=== PATIENT | male | born 1970 | race Native Hawaiian/Other Pacific Islander ===

== ENCOUNTER → 2016-04-26 | Outpatient (CLI) | payer OTHER ==
[2016-04-26 13:03] LABS: EKG EKG PERFORMED
--- NOTE | 2016-04-26 13:08 | XR ---
EXAMINATION TYPE: XR chest 2V DATE OF EXAM: 04/26/2016 12:48 PM COMPARISON: 11/25/2013 HISTORY: 45-year-old male preadmission screening TECHNIQUE: Frontal and lateral views FINDINGS: The cardiomediastinal silhouette, aorta, and pulmonary vasculature are within normal limits. Low lung volumes with some strandy atelectasis in the lower lungs. Otherwise, lungs and pleural spaces are cl ear. ACDF hardware partially seen. IMPRESSION: Some hypoventilatory changes without acute cardiopulmonary process.
[2016-04-26 13:23] LABS: Appearance,Urine Clear (Clear); Basophils # (A) 0.1 k/uL (0-0.2); Basophils % (A) 1 %; Bilirubin,Urine Negative (Negative); CH 30.8; CHCM 34.9; Eosinophils # (A) 0.1 k/uL (0-0.7); Eosinophils % (A) 2 %; Glucose,Urine (UA) Negative (Negative); HDW 2.93; HGB 15.6 gm/dL (13.0-17.5); Ketones,Urine Negative (Negative); Leukocyte Esterase,Urine Negative (Negative); Luc # (Auto) 0.12; Luc % (Auto) 2; Lymphocytes # (A) 2.5 k/uL (1.0-4.8); Lymphocytes % (A) 31 %; MCH 28.8 pg (25.0-35.0); MCHC 32.5 g/dL (31.0-37.0); MCV 88.8 fL (80.0-100.0); Mean Platelet Volume 7.1; Monocytes # (A) 0.4 k/uL (0-1.0); Monocytes % (A) 5 %; Neutrophils # (A) 4.7 k/uL (1.3-7.7); Neutrophils % (A) 59 %; Nitrite,Urine Negative (Negative); PH, Urine 6.5 (5.0-8.0); Protein,Urine Negative (Negative); RBC 5.41 m/uL (4.30-5.90); RDW 12.7 % (11.5-15.5); Specific Gravity,Urine 1.016 (1.001-1.035); UA Billing (MACRO vs. MICRO) CHEM; Urobilinogen,Urine <2.0 mg/dL (<2.0); WBC 8.1 k/uL (3.8-10.6); WBC (Perox) 8.24
[2016-04-26 13:29] LABS: INR 1.1 (<1.1); Partial Thromboplastin Time 25.1 sec (22.0-30.0)
[2016-04-26 14:07] LABS: Anion Gap 12 mmol/L; Blood Urea Nitrogen 12 mg/dL (9-20); Calcium 9.4 mg/dL (8.4-10.2); Carbon Dioxide 26 mmol/L (22-30); Chloride 104 mmol/L (98-107); Glucose 83 mg/dL (74-99); Non-African American GFR(MDRD) >60 (>60 ml/min/1.73 sqM); Potassium 4.3 mmol/L (3.5-5.1); Sodium 142 mmol/L (137-145)
== END | disposition home or self-care (01) ==
LOC: LABPAT 11:32
PROVIDERS: ATTEND Orthopaedic Surgery Orthopaedic Surgery of the Spine
DX: Z01.810 Encounter for preprocedural cardiovascular examination (principal); Z01.812 Encounter for preprocedural laboratory examination
CPT/HCPCS: 71020; 80048; 81003; 85025; 85610; 85730; 87070; 93005

== ENCOUNTER 2016-05-02 11:23 | Inpatient (IN) | payer OTHER ==
[2016-04-26 10:30] VITALS: BMI 29.8
[~2016-05-02 11:23] MED LIST: BACITRACIN 50,000 UNIT, POLYMYXIN B 500,000 UNIT in SODIUM CHLORIDE 0.9% IRRIGATIO 1,00... IRRIGATION ONE; DEXAMETHASONE SOD PHOSPHATE 10 MG/ML 1 ML VIAL IV ONE; MIDAZOLAM 2 MG/2 ML VIAL IV PRN; ONDANSETRON 4 MG/2 ML VIAL IVP ONE; ceFAZolin 2 GM in SODIUM CHLORIDE 0.9% 100 ML IVPB ONE
[2016-05-02] MEDS: LACTATED RINGERS 1,000 ML IV SCH (11:52)
[2016-05-02] MEDS ORDERED: LIDOCAINE 1% 20 ML VIAL (10MG/ML) FOR IV START INTRADERMA ONE (11:52)
[2016-05-02] MEDS ORDERED: PROPOFOL 10 MG/ML 20 ML VIAL IV ONE (12:57)
[2016-05-02] MEDS ORDERED: HEPARIN SODIUM,PORCINE 10,000 UNIT/ML 1 ML VIAL ONE (12:57)
[2016-05-02] MEDS ORDERED: LIDOCAINE 1% INJ 10MG/ML (20 ML MDV) ONE (12:57)
[2016-05-02] MEDS ORDERED: MIDAZOLAM 2 MG/2 ML VIAL ONE (12:57)
[2016-05-02] MEDS ORDERED: PHENYLEPHRINE-0.9% NACL SYG 1 MG/10 ML SYRINGE ONE (12:57)
[2016-05-02] MEDS ORDERED: ePHEDrine 50 MG/ML 1 ML AMP ONE (12:57)
[2016-05-02] MEDS ORDERED: GLYCOPYRROLATE 0.2 MG/ML 2 ML VIAL ONE (12:57)
[2016-05-02] MEDS ORDERED: fentaNYL (PF) 50 MCG/ML 2 ML AMP ONE (12:57)
[2016-05-02] MEDS ORDERED: ROCURONIUM BROMIDE 10 MG/ML 10 ML VIAL IV ONE (12:57)
[2016-05-02] MEDS ORDERED: SODIUM CHLORIDE 0.9% IRRIG 1,000 ML BTL IRRIGATION ONE (12:57)
[2016-05-02] MEDS ORDERED: ONDANSETRON 4 MG/2 ML VIAL ONE (12:57)
[2016-05-02] MEDS ORDERED: GELATIN SPONGE,ABSORB (LARGE) 1 EACH SPONGE TOPICAL ONE ×3 (13:05→13:38)
[2016-05-02] MEDS ORDERED: THROMBIN (BOVINE) 5,000 UNIT VIAL MISCELLANE ONE ×2 (13:05→13:38)
[2016-05-02] MEDS ORDERED: BUPIVACAINE (PF) 0.25% 30 ML VIAL SQ ONE ×3 (13:05→16:56)
[2016-05-02] MEDS ORDERED: LIDOCAINE 0.5%-EPI 1:200,000 50 ML VIAL SQ ONE ×3 (13:05→13:38)
[2016-05-02] MEDS ORDERED: LACTATED RINGERS 1,000 ML IV ONE ×6 (13:50→18:48)
--- NOTE | 2016-05-02 14:39 | XR ---
EXAMINATION TYPE: XR lumbar spine 1V DATE OF EXAM: 05/02/2016 2:32 PM COMPARISON: NONE HISTORY: Intraoperative evaluation TECHNIQUE: Crosstable lateral lumbar spine FINDINGS: Pedicle screws are present at L5 and S1. A metallic device is directed towards L4 pedicle. IMPRESSION: 1. Intraoperative evaluation for surgery lumbar spine
[2016-05-02] MEDS ORDERED: HYDROmorphone 1 MG/ML 1 ML SYRINGE IVP PRN (17:03)
[2016-05-02] MEDS ORDERED: ONDANSETRON 4 MG/2 ML VIAL IVP PRN (17:03)
[2016-05-02] MEDS ORDERED: BENZOCAINE/MENTHOL LOZENG 1 EACH LOZENGE MUCOUS MEM PRN (17:03)
[2016-05-02] MEDS ORDERED: oxyCODONE-APAP 5-325MG 1 EACH TAB PO PRN (17:07)
--- NOTE | 2016-05-02 17:20 | P.OP ---
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, spinal stenosis L4 5, history of prior fusion L5-S1, low back pain with lower extremity radiculopathy Postoperative Diagnosis: Same Anesthesia: GETA Pathology: none sent Condition: stable Disposition: PACU Description of Procedure: BRIEF OPERATIVE NOTE Preoperative Diagnosis: Spinal stenosis L4 5, adjacent level degeneration L4 5, low back pain with lower extremity radiculopathy, history of prior fusion L5-S1 Postoperative Diagnosis: Same Procedure: Removal of deep hardware L5-S1, Expiration effusion with finding of solid fusion L5-S1, Laminectomy and decompression with wide bilateral foraminotomy and facetectomy L4 5 Posterior lateral decompression and fusion L4 5 Transforaminal lumbar interbody fusion for a 360 fusion L4 5 Discectomy for decompression L4 5 Placement of interbody graft L4 5 Iliac crest bone grafting from the left iliac crest Bone marrow aspiration from the right iliac crest with bone aspiration device Local autogenous bone grafting Use of Cell Saver Use of bone graft extenders Use of neuro monitoring Surgeon: Dr. Churchill Bail Bonding Agent: Kenrick Dos Santos is present throughout the entire the case persistence during positioning, dissection, exposure, visualization, and all crucial elements of the case as well as closure. Anesthesia: General anesthesia Estimated blood loss: Approximately 350 mL with 138 given back through Cell Saver Complications: None apparent Components implanted: K2M [place] ankle screw system with 2 screws measuring 6.5 mm in diameter one screw measuring 7.5 mm in diameter I removed one CEM pedicle screw from the left at L5 and the 2 rods that were present at L5-S1. I left the screws intact that were placed at the prior surgery at L5 on the right and S1 bilaterally. I also placed a K2M interbody cage at L4 5 Disposition: To recovery room in good stable condition. OPERATIVE INDICATIONS The patient has had long-standing issues in their lower back and lower extremities. The patient had undergone prior surgery in the past at L5-S1 and had had a good result from that. However over the past few years he has been building increasing pain in his back and pain in his lower extremities with radiculopathy. Patient was found have significant degenerative changes at the adjacent levels at L4 5 with progressive disc height loss and stenosis which correlated with his back and lower extremity symptoms. The patient has been through conservative treatment. He is not having any benefit despite aggressive conservative treatment. We discussed various treatment options including surgery, and the patient wishes to proceed with surgery We discussed the risk, patient's alternatives and benefits of surgery including but not limited to, risk of bleeding risk of infection, risk of need for further surgery , risk of decreased, loss of motion, muscle function, malunion nonunion, hardware failure, nerve damage, paralysis, heart attack, blindness and . OPERATIVE SUMMARY After discussing all the risks, patient alternatives and benefits at length, the patient elected to proceed with surgical intervention, signed informed consent, and presented for their procedure. The patient was seen and examined in the preoperative holding area and the surgical site was marked. The patient was given antibiotics and brought to the operating room. The patient was sedated and intubated by anesthesia in standard fashion. The patient was positioned on to the operating room table in a prone position on the appropriate frame which was well-padded and well molded. We were careful to pad any bony prominences and pressure points. We were careful to maintain the patient's cervical spine and good neutral alignment and position throughout. The patient was prepped and draped in a normal standard fashion. An appropriate timeout and keystone protocol performed. We were able to proceed with the surgery. The local wound area was infiltrated with local anesthetic. An incision was made at the midline longitudinally over the appropriate levels utilizing the prior incision and extending cephalad toward the tattoo at his back. Dissection was taken down subcutaneously to the level of the fascia which was split midline. Dissection was taken over the lamina bilaterally over the facet joints and to the transverse processes. I was able to expose the prior hardware bilaterally at L5-S1. There are some bony overgrowth over the hardware and some bone had removed to expose the screw heads. I was able to explore over the fusion mass and there was found to have good solid fusion at L5 and S1. I was able to remove the Screws at L4 5 and S1 bilaterally and then I was able to remove the rods bilaterally. There was a novel screwdriver connection device which was very difficult to match up for removal of the screws. We tried multiple attempts of screw removal from the old hardware however I felt that we're at significant risk of stripping the screws and the bone fixation, as well as hollowing out the pedicle which may lead us few if any options for further fixation at the levels of L5-S1 pedicles. We were able to remove the L5 screw on the left, but Given these issues I felt that it would be best to leave the other screws intact at L5 and S1 on the right and S1 on the left to avoid further damage to the bony fixation and to continue to allow some bony fixation points at L5 and S1 in addition to the new implant placements at L4. On the left side I am dissected further out to the iliac crest and through a separate fascial incision I was able to expose the left iliac crest and made a small bony window through the cortical area and then took a Garza curet for iliac crest bone harvesting for good cancellus bone to be used later in the case. On the right side through separate fascial incision I took a bone marrow aspiration device and I was able to place it and withdraw bone marrow aspirate which was used to soak the osteoamp cancellus allograft bone graft for use later in the case along with the local autogenous bone graft. Intraoperative x-ray was taken which showed a marker at the appropriate level at L4. With the appropriate level positively confirmed, we were able to proceed with placement of the pedicle holes and screws. The patient had all their twitches back. The wound was copiously irrigated and suctioned dry as had been done periodically throughout the case. Screw holes were established similarly at each level. A sharp awl was used to establish the starting hole. It was palpated and found to have good for nguyen and good base. A monitored Steffee probe was used to establish the pedicle hole. It was positioned so there was no stimulation at 12 mA. The hole was palpated and found to have good for nguyen and a good base. The hole was tapped with the appropriate sized tap. The transverse process or sacral ala was decorticated with a high-speed bur. I was able to use these holes to place the appropriate size screw and good alignment and good position with good bony purchase. When the screws were inserted there were stimulated, and found to have no stimulation at 20 mA. I was able to turn my attention to the decompression. decompression was performed with a combination of rongeurs, curettes, Kerrison rongeurs and a ball -tip feeler. All of the bone that was removed was stripped and morcellized for use as autogenous bone graft later in the case. I was able to obtain good central decompression as well as wide bilateral foraminal decompression. There is no evidence of dural tear or leak. Good hemostasis was maintained. The wound was irrigated and suctioned dry. I performed a complete facetectomy at the appropriate level on the most symptomatic side on the left. All bone that was removed was saved for local autogenous bone grafting. I was able to gain access to the disc space at the appropriate level/levels. Good hemostasis was maintained. I was able to protect the neurologic structures. There is some disc protrusion of the disc on the left. A discectomy was performed. This provided further decompression. I was also able to perform complete discectomy and endplate preparation with a combination of pituitary curettes, rasps and scrapers. With the interbody space prepared, I was able to do appropriate sizing. The appropriate size cage was chosen. The wound was irrigated and suctioned dry. The interbody space was packed with local autogenous bone graft and a small portion of bone graft substitute, as was the cage itself. Protecting the soft tissue structures, I was able place the cage in good alignment and good position with good fit and fill. There is no evidence of extrusion of the graft material nor protrusion of the interbody device. The wound was irrigated and suctioned dry. The prior screw system used a 5.5 talya as well and I was able to connect with the new pedicle screws at L4 and L5 on the left and the new pedicle screw at L4 on the right to the old pedicle screws at L5 and S1 on the right and S1 on the left. I was able place a cross-link as well. I had good bony fixation bilaterally at multiple levels from L4 to S1 bilaterally. With the hardware intact, intraoperative x-ray was again taken which showed good alignment and position of the hardware at the appropriate levels. We were then able to measure, contour and place the rods and appropriate hardware bilaterally. I was able to place capcrews, tighten them down, and shear them off appropriately. The sheared portion was counted and accounted for. With this intact I was able to place the local autogenous bone graft with additional bone graft enhancer as necessary into the posterior lateral gutters bilaterally. With the bone graft intact, a stable construct, and good decompression at the appropriate levels, we were able to proceed with closure. Good hemostasis was maintained. There is no evidence of dural tear or leak. The fascia was closed for a watertight closure. The subcutaneous tissue was closed over a superficial drain. The subcuticular tissue was closed with absorbable suture. The wound was cleaned and dried and dressed with the appropriate dressing. The drapes were broken down. The patient was gently rolled back onto their hospital bed being careful to maintain their cervical spine and good neutral alignment and position. They were woken up by anesthesia, extubated, and brought to the recovery room in good stable condition. The patient will be admitted to the hospital for appropriate postoperative care , medical management and monitoring. We will continue to follow them closely about the postoperative course.
--- NOTE | 2016-05-02 17:32 | XR ---
EXAMINATION TYPE: XR lumbar spine 2 or 3V DATE OF EXAM: 05/02/2016 5:00 PM COMPARISON: Today HISTORY: Hardware placement. Surgery. TECHNIQUE: 2 views FINDINGS: There are rods and screws fusing posteriorly the lumbar spine from L4 to S1. There is a dis c prosthesis at L4-5. There is apparent laminectomy of L5. Sacroiliac joints appear intact. IMPRESSION: Posterior fusion surgery. I see no complicating process.
[2016-05-02] MEDS: HYDROmorphone 1 MG/ML 1 ML SYRINGE IVP PRN ×4 (17:40→19:23)
[2016-05-02] MEDS ORDERED: MEPERIDINE 50 MG/ML SYRINGE IVP ONE ×2 (18:00→18:30)
[2016-05-02] MEDS ORDERED: HYDROmorphone 1 MG/ML 1 ML SYRINGE IVP ONE (18:07)
[2016-05-02] MEDS: GABAPENTIN 100 MG CAP PO SCH (19:05)
[2016-05-02] MEDS: SODIUM CHLORIDE 0.9% 1,000 ML IV SCH (19:05)
[2016-05-02] MEDS: HYDROmorphone PCA 5 MG/25 ML SYRINGE IV PRN (19:33)
[2016-05-02] MEDS: QUEtiapine 100 MG TAB PO SCH (20:04)
[2016-05-02] MEDS: ATORVASTATIN 20 MG TAB PO SCH (20:04)
[2016-05-02] MEDS: SERTRALINE 100 MG TAB PO SCH (20:04)
[2016-05-02] MEDS: PRAZOSIN 1 MG CAP PO SCH (20:04)
[2016-05-02] MEDS: ceFAZolin 2 GM in SODIUM CHLORIDE 0.9% 100 ML IVPB SCH (23:15)
[2016-05-02] MEDS: oxyCODONE-APAP 7.5-325MG 1 EACH TAB PO PRN (23:15)
[2016-05-03] MEDS: oxyCODONE-APAP 7.5-325MG 1 EACH TAB PO PRN ×5 (03:05→19:06)
[2016-05-03] MEDS: SODIUM CHLORIDE 0.9% 1,000 ML IV SCH ×2 (06:03→20:00)
[2016-05-03 06:51] LABS: Basophils % (A) 0 %; CH 30.3; CHCM 34.5; Eosinophils # (A) 0.1 k/uL (0-0.7); Eosinophils % (A) 1 %; HCT 38.7 % (39.0-53.0); HDW 2.85; HGB 12.9 gm/dL (13.0-17.5); Luc # (Auto) 0.09; Luc % (Auto) 1; Lymphocytes # (A) 1.4 k/uL (1.0-4.8); Lymphocytes % (A) 17 %; MCH 29.5 pg (25.0-35.0); MCHC 33.5 g/dL (31.0-37.0); MCV 88.1 fL (80.0-100.0); Monocytes # (A) 0.4 k/uL (0-1.0); Monocytes % (A) 5 %; Neutrophils # (A) 6.1 k/uL (1.3-7.7); Neutrophils % (A) 76 %; RBC 4.38 m/uL (4.30-5.90); RDW 12.7 % (11.5-15.5); WBC (Perox) 8.79
[2016-05-03 07:04] LABS: Anion Gap 7 mmol/L; Blood Urea Nitrogen 12 mg/dL (9-20); Calcium 8.2 mg/dL (8.4-10.2); Carbon Dioxide 29 mmol/L (22-30); Chloride 103 mmol/L (98-107); Glucose 132 mg/dL (74-99); Non-African American GFR(MDRD) >60 (>60 ml/min/1.73 sqM); Potassium 4.1 mmol/L (3.5-5.1); Sodium 139 mmol/L (137-145)
[2016-05-03] MEDS: LISINOPRIL 10 MG TAB PO SCH (08:27)
[2016-05-03] MEDS: ceFAZolin 2 GM in SODIUM CHLORIDE 0.9% 100 ML IVPB SCH (08:27)
[2016-05-03] MEDS: SERTRALINE 100 MG TAB PO SCH ×2 (08:27→20:54)
--- NOTE | 2016-05-03 08:31 | P.PN ---
Progress Note - Text Orthopedic Spine Patient is a pleasant 45-year-old male who is seen and examined at the bedside following posterior lateral decompression and fusion performed yesterday. Patient states they are doing ok postsurgically this morning. He has not been out of bed following surgery but plans to get out of bed soon to use the restroom. His Villegas catheter has been discontinued this morning. Currently does not complain of nausea, vomiting, fever, or chills. Patient states pain has been adequately controlled. He has not had much of an appetite postsurgically but has been eating some Jell-O. Overall, his pain has been controlled with oral and IV medications. Physical Exam Lumbar Fusion: Status post surgical day number 1 Patient is awake, alert, and oriented 3 Vital signs stable Good chest excursion with deep inspiration and expiration Abdomen soft nontender Dorsiflexion, plantarflexion, and extensor hallucis longus positive sustained bilaterally No signs or symptoms of DVT; no calf pain; pneumatic cuffs intact bilateral lower extremities Dressing is clean, dry, and intact; no erythema, purulence, or signs of infection Hemovac drain well secure Neurovascularly intact bilaterally lower extremities Assessment: Posterior lateral decompression and fusion L4-5 Transforaminal lumbar interbody fusion L4-5 Removal of deep hardware L5-S1 L4-5 spinal canal stenosis and adjacent level degenerative disc disease Low back pain with left lower extremity radiculopathy History of prior lumbar fusion L5-S1 Plan: 1. Ambulate as tolerated; work with Physical Therapy to increase mobilization 2. Continue pain control with IV and oral medications 3. Telfa and Tegaderm dressing to remain intact; Hemovac drain to remain intact ; Hemovac drain to be removed tomorrow and dressing to be changed at that time 4. Medical management can continue to manage patient for patient's other medical issues 5. We will continue to follow the patient closely 6. Patient can follow-up with Kenrick Alonso PA-C or Dr. Tod Churchill at [facility] in 2-3 weeks following discharge
[2016-05-03] MEDS: LACTATED RINGERS 1,000 ML IV SCH (10:26)
[2016-05-03] MEDS: HYDROmorphone PCA 5 MG/25 ML SYRINGE IV PRN (11:35)
--- NOTE | 2016-05-03 12:25 | P.PN ---
Progress Note - Text Postoperative day #1 Patient is seen and examined today at bedside. The patient has some pain around the surgical site as expected. Pain is being controlled with medication. He has been able to void freely with the Villegas discontinued. Physical Exam Afebrile with stable vital signs Abdomen is soft nontender. Chest has good excursion deep and space expiration The incision site is clean dry and intact. No erythema there is no purulence. Dressing and drain are intact. Extremities have not had neurologic change from prior to surgery. He has sustained dorsal flexion plantar flexion and extensor hallucis longus Calves and thighs were soft nontender without evidence of DVT. Assessment/Plan Postoperative day #1 status post removal of hardware L5-S1 with extension of fusion and decompression L4 5 for his spinal stenosis and adjacent level degeneration Patient is progressing as expected from the surgery. His pain is being controlled adequately thus far and he is able to void. We will continue to increase the patient's mobilization with therapy. We will continue pain control with oral or IV medications. We'll continue to follow patient closely.
--- NOTE | 2016-05-03 13:10 | P.CONS ---
History of Present Illness - Reason for Consult Consult date: 05/03/16 Medical management - Chief Complaint Chronic low back pain - History of Present Illness This is a 45-year-old gentleman with past medical history noted below significant for prior back surgery years ago with hardware placement that was brought into the hospital and admitted for elective surgery and hardware removal. Patient is postoperative day #1. His seated up in the chair. He still complaining of low back pain. He is maintained on a REED REPAIRER pump. Villegas catheter was discontinued around an hour ago and patient did not void as of yet. He does not have any specific concerns otherwise. I was asked to see him for medical management. Review of Systems Review of system: 14 points review of systems were obtained and were negative except to what were mentioned in the HPI. Past Medical History Past Medical History: Hypertension, Osteoarthritis (OA), Sleep Apnea/CPAP/BIPAP Additional Past Medical History / Comment(s): migraines, wears a back brace History of Any Multi-Drug Resistant Organisms: None Reported Past Surgical History: Appendectomy, Back Surgery, Orthopedic Surgery Additional Past Surgical History / Comment(s): lumbar fusion, cervical fusion,4 surgeries left shoulder-2 arthroscopy, 3 surgeries rt shoulder-1 arthroscopy, Past Anesthesia/Blood Transfusion Reactions: No Reported Reaction Additional Past Anesthesia/Blood Transfusion Reaction / Comm: no previous problems with intubation/neck movement for general anesthesia Past Psychological History: PTSD Smoking Status: Never smoker Past Alcohol Use History: Rare Past Drug Use History: None Reported - Past Family History Father Family Medical History: Cancer Medications and Allergies Home Medications Medication Instructions Recorded Confirmed Type Lisinopril [Zestril] 10 mg PO DAILY 08/09/13 05/02/16 History Sertraline [Zoloft] 100 mg PO BID 09/10/13 05/02/16 History Gabapentin [Neurontin] 200 mg PO W/SUPPER 04/26/16 05/02/16 History Naproxen 500 mg PO DAILY 04/26/16 05/02/16 History Prazosin HCl 4 mg PO HS 04/26/16 05/02/16 History oxyCODONE HCL/ACETAMINOPHEN 2 tab PO BID 04/26/16 05/02/16 History [Percocet 5-325 mg] Atorvastatin Calcium [Lipitor] 20 mg PO HS 05/02/16 05/02/16 History QUEtiapine FUMARATE [SEROquel] 300 mg PO HS 05/02/16 05/02/16 History Allergies Allergy/AdvReac Type Severity Reaction Status Date / Time No Known Allergies Allergy Verified 04/26/16 10:17 Physical Exam Vitals: Vital Signs Temp Pulse Resp BP Pulse Ox 05/03/16 07:22 110 H 05/03/16 07:00 99.9 F H 111 H 15 119/71 97 05/03/16 02:03 98.0 F 104 H 16 112/65 96 05/02/16 20:45 106 H 130/79 05/02/16 20:30 107 H 124/75 05/02/16 20:15 107 H 132/72 05/02/16 20:05 109 H 108/70 05/02/16 20:00 112 H 118/68 05/02/16 19:45 111 H 127/82 05/02/16 19:30 108 H 133/79 05/02/16 19:15 108 H 132/78 05/02/16 19:00 97.1 F L 110 H 17 139/80 100 05/02/16 18:25 109 H 16 162/81 99 05/02/16 18:18 102 H 16 159/81 100 05/02/16 18:03 110 H 18 153/73 100 05/02/16 17:49 109 H 16 177/64 100 05/02/16 17:34 97.2 F L 105 H 16 171/79 100 Intake and Output 05/02/16 05/03/16 05/03/16 22:59 06:59 14:59 Intake Total 1000 360 Output Total 1475 600 920 Balance -475 -600 -560 Intake: IV 1000 Oral 360 Output: Drainage 220 Back 220 Urine 1125 600 700 Uretheral (Villegas) 700 Estimated Blood Loss 350 Other: Voiding Method Indwelling Catheter # Voids 1 Weight 99.79 kg General: The patient is awake and alert, in no distress Eye: there is normal conjunctiva bilaterally. Neck: The neck is supple, there is no JVD. Cardiovascular: Normal S1-S2, no S3-S4, no murmurs. Respiratory: Lungs clear to auscultation bilaterally Gastrointestinal: Abdomen is soft, nontender Musculoskeletal: There is no pedal edema. Neurological:. Speech is normal. Skin: Skin is warm and dry Results CBC & Chem 7: 05/03/16 06:21 05/03/16 06:21 Labs: Abnormal Lab Results - Last 24 Hours (Table) 05/03/16 05/03/16 Range/Units 06:21 06:21 Hgb 12.9 L (13.0-17.5) gm/dL Hct 38.7 L (39.0-53.0) % Glucose 132 H (74-99) mg/dL Calcium 8.2 L (8.4-10.2) mg/dL Assessment and Plan Plan: 1. Postoperative day #1 status post low back surgery with hardware removal and decompression of spinal stenosis at L4/L5 level. Continue postoperative care. Villegas catheter discontinued. Pain management per surgery. 2. Essential hypertension, blood pressure well controlled 3. Mixed hyperlipidemia 4. Chronic neuropathic pain/sciatica 5. Major depressive disorder Today, I reviewed her medication list and lab work results. Continue current regimen. Thank you very much for the consultation. I will continue to follow up on the patient closely.
[2016-05-03] MEDS: GABAPENTIN 100 MG CAP PO SCH (17:26)
[2016-05-03] MEDS: PRAZOSIN 1 MG CAP PO SCH (20:54)
[2016-05-03] MEDS: QUEtiapine 100 MG TAB PO SCH (20:54)
[2016-05-03] MEDS: ATORVASTATIN 20 MG TAB PO SCH (20:54)
[2016-05-04] MEDS: oxyCODONE-APAP 7.5-325MG 1 EACH TAB PO PRN ×5 (00:32→17:59)
[2016-05-04] MEDS: LACTATED RINGERS 1,000 ML IV SCH (02:13)
[2016-05-04 07:19] LABS: Basophils # (A) 0.1 k/uL (0-0.2); Basophils % (A) 1 %; CH 30.2; CHCM 34.9; Eosinophils % (A) 0 %; HDW 2.84; HGB 12.6 gm/dL (13.0-17.5); Luc # (Auto) 0.12; Luc % (Auto) 1; Lymphocytes # (A) 1.2 k/uL (1.0-4.8); Lymphocytes % (A) 11 %; MCH 29.7 pg (25.0-35.0); MCHC 34.1 g/dL (31.0-37.0); Mean Platelet Volume 6.4; Monocytes # (A) 0.7 k/uL (0-1.0); Monocytes % (A) 7 %; Neutrophils # (A) 8.9 k/uL (1.3-7.7); Neutrophils % (A) 80 %; RBC 4.26 m/uL (4.30-5.90); RDW 12.5 % (11.5-15.5); WBC (Perox) 11.66
[2016-05-04 07:40] LABS: Anion Gap 8 mmol/L; Blood Urea Nitrogen 8 mg/dL (9-20); Carbon Dioxide 26 mmol/L (22-30); Chloride 102 mmol/L (98-107); Glucose 110 mg/dL (74-99); Non-African American GFR(MDRD) >60 (>60 ml/min/1.73 sqM); Potassium 3.9 mmol/L (3.5-5.1); Sodium 136 mmol/L (137-145)
[2016-05-04] MEDS: LISINOPRIL 10 MG TAB PO SCH (08:53)
[2016-05-04] MEDS: SERTRALINE 100 MG TAB PO SCH ×2 (08:53→20:12)
[2016-05-04] MEDS ORDERED: MAGNESIUM HYDROXIDE 2,400 MG/10 ML CUP PO PRN (10:01)
[2016-05-04] MEDS ORDERED: SENNOSIDES-DOCUSATE SODIUM 1 EACH TAB PO PRN (10:04)
--- NOTE | 2016-05-04 10:19 | P.DS ---
Providers Date of admission: 05/02/16 11:23 Expected date of discharge: 05/05/16 Attending physician: Dianna Churchill Consults: 05/02/16 17:03 Consult Physician Routine Consulting Provider: Suzanne Hernandez Consult Reason/Comments: Medical management Do you want consulting provider notified?: Yes Primary care physician: Angie Mora - Discharge Diagnosis(es) (1) Lumbar spinal stenosis Current Visit: Yes Status: Acute (2) Lumbar degenerative disc disease Current Visit: Yes Status: Acute (3) Low back pain Current Visit: Yes Status: Acute (4) Radiculopathy with lower extremity symptoms Current Visit: Yes Status: Acute (5) Arthrodesis status Current Visit: Yes Status: Acute (6) History of lumbar fusion Current Visit: Yes Status: Acute (7) Status post lumbar spinal fusion Current Visit: Yes Status: Acute Hospital Course: This is a pleasant 45-year-old male who presented with L4-5 spinal canal stenosis and adjacent level degenerative disc disease, history of previous lumbar fusion L5-S1, low back pain, and lower extremity radiculopathy who failed outpatient conservative therapy. He admitted for a posterior lateral decompression and fusion with transforaminal lumbar interbody fusion L4-5 with removal of deep hardware L5-S1 and iliac crest bone graft. The patient tolerated the procedure well and did well postoperatively. His pain is been better controlled as compared to yesterday. 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 He has been able to ambulate throughout his room and into the restroom without significant difficulty. He feels significantly better today as compared to yesterday. He's been able to get in and out of the bedside chair without significant difficulty. He feels he is ready for discharge tomorrow, 05/05/2016 , and would like to stay throughout the day to continue increasing his mobility and ambulation prior to discharge home. Patient has also been unable to have a bowel movement following surgery. He is receiving Senokot at nighttime. He has some gas and some abdominal discomfort but no specific abdominal pain. He is hoping to have a bowel movement today. We discussed we will plan to change his medications to try to help facilitate a bowel movement. Condition on day of discharge is stable. Patient will be discharged home. Patient was cleared preoperatively for surgery by Dr. Angie Mora. Patient currently denies any nausea, vomiting, fever, or chills. Patient is eating and voiding freely without difficulty but has not had much of an appetite postsurgically. His Villegas catheter had been removed yesterday. Patient may shower Tegaderm dressing intact. Patient may remove Tegaderm dressing in 3 days and shower without a dressing at that time. Patient should keep Steri-Strips intact and allow them to fall off naturally. Patient should refrain from driving until at least after their first follow-up appointment in the office. Patient should avoid excessive bending, lifting, and twisting; no lifting greater than 10 pounds. Patient has a home prescription for Percocet 5 mg/325 mg. He may resume this [facility] as needed for relief of his symptoms. Physical Exam: Status post surgical day number 2 Patient is awake, alert, and oriented 3 Vital signs stable Good chest excursion with deep inspiration and expiration Abdomen soft with some discomfort Dorsiflexion, plantarflexion, and extensor hallucis longus positive sustained bilaterally No signs or symptoms of DVT; no calf pain; pneumatic cuffs intact bilateral lower extremities Dressing is clean, dry, and intact; no erythema, purulence, or signs of infection Some discomfort with palpation around the surgical site without significant pain Hemovac drain well secure; Hemovac drain removed during physical examination Tegaderm and Telfa changing physical examination Neurovascularly intact bilaterally lower extremities Assessment: Posterior lateral decompression and fusion L4-5 Transforaminal lumbar interbody fusion L4-5 Removal of deep hardware L5-S1 L4-5 spinal canal stenosis and adjacent level degenerative disc disease Low back pain with left lower extremity radiculopathy History of prior lumbar fusion L5-S1 Plan: 1. Ambulate as tolerated; continue working Physical Therapy to increase mobilization 2. Continue pain control with IV and oral medications; discontinued SCALEHOUSE ATTENDANT 3. Telfa and Tegaderm dressing has been removed and change; Hemovac drain has been discontinued 4. Medical management can continue to manage patient for patient's other medical issues 5. We will add milk of magnesia twice per day as needed and Senokot twice per day as needed to help facilitate a bowel movement; discontinue Senokot only at night 6. We will continue to follow the patient closely; He will continue to increase mobility today with plans to discharge home tomorrow morning, 2016 7. Patient can follow-up with Kenrick Alonso PA-C or Dr. Tod Churchill at [facility] in 2-3 weeks following discharge Procedures: Posterior lateral decompression and fusion with transforaminal lumbar interbody fusion L4-5 with removal of deep hardware L5-S1 and iliac crest bone graft. Patient Condition at Discharge: Stable Plan - Discharge Summary Discharge Medication List Lisinopril [Zestril] 10 mg PO DAILY 08/09/13 [History] Sertraline [Zoloft] 100 mg PO BID 09/10/13 [History] Gabapentin [Neurontin] 200 mg PO W/SUPPER 04/26/16 [History] Naproxen 500 mg PO DAILY 04/26/16 [History] Prazosin HCl 4 mg PO HS 04/26/16 [History] oxyCODONE HCL/ACETAMINOPHEN [Percocet 5-325 mg] 2 tab PO BID 04/26/16 [History] Atorvastatin Calcium [Lipitor] 20 mg PO HS 05/02/16 [History] QUEtiapine FUMARATE [SEROquel] 300 mg PO HS 05/02/16 [History] Follow up Appointment(s)/Referral(s): Kenrick Alonso, PAC [PHYSICIAN CONCERT OR LECTURE HALL MANAGER] - 2 Weeks (Patient may follow-up with Kenrick Alonso PA-C or Dr. Tod Churchill at [facility] in 2-3 weeks following discharge. ) Activity/Diet/Wound Care/Special Instructions: 1. Patient may shower with Tegaderm and Telfa dressing intact. 2. Patient may remove Tegaderm and Telfa dressing in 3 days and shower without a dressing at that time. 3. Patient should keep Steri-Strips intact and allow them to fall off naturally. 4. Patient should refrain from driving until at least after their first follow- up appointment in the office. 5. Patient should avoid excessive bending, twisting, and lifting; no lifting greater than 10 pounds 6. Do not soak in tub Discharge Disposition: HOME SELF-CARE
[2016-05-04] MEDS: SODIUM CHLORIDE 0.9% 1,000 ML IV SCH (10:32)
[2016-05-04] MEDS: HYDROmorphone 1 MG/ML 1 ML SYRINGE IVP PRN ×3 (12:56→20:12)
[2016-05-04] MEDS: GABAPENTIN 100 MG CAP PO SCH (16:50)
[2016-05-04] MEDS: DIAZEPAM 5 MG TAB PO PRN (16:50)
--- NOTE | 2016-05-04 16:52 | P.PN ---
Subjective Patient is doing well today. He is complaining of constipation this morning. Objective - Vital Signs Vital signs: Vital Signs Temp 98.6 F 05/04/16 14:15 Pulse 103 H 05/04/16 14:15 Resp 16 05/04/16 14:15 BP 137/69 05/04/16 14:15 Pulse Ox 96 05/04/16 14:15 Intake & Output 05/03/16 05/04/16 05/04/16 18:59 06:59 18:59 Intake Total 2480 480 375 Output Total 940 Balance 1540 480 375 Intake: Intake, IV Titration 800 375 Amount Sodium Chloride 0.9% 1, 375 000 ml @ 75 mls/hr IV . [id number] [facility] Rx#:[id number] ceFAZolin 2 gm In Sodium 800 Chloride 0.9% 100 ml @ 100 mls/hr IVPB Q8HR [facility] Rx#:[id number] Oral 1680 480 Output: Drainage 240 Back 240 Urine 700 Uretheral (Villegas) 700 Other: Voiding Method Toilet Toilet # Voids 1 1 - Exam General: The patient is awake and alert, in no distress Eye: there is normal conjunctiva bilaterally. Neck: The neck is supple, there is no JVD. Cardiovascular: Normal S1-S2, no S3-S4, no murmurs. Respiratory: Lungs clear to auscultation bilaterally Gastrointestinal: Abdomen is soft, nontender Musculoskeletal: There is no pedal edema. Neurological:. Speech is normal. Skin: Skin is warm and dry - Labs CBC & Chem 7: 05/04/16 06:43 05/04/16 06:43 Labs: Abnormal Lab Results - Last 24 Hours (Table) 05/04/16 05/04/16 Range/Units 06:43 06:43 WBC 11.0 H (3.8-10.6) k/uL RBC 4.26 L (4.30-5.90) m/uL Hgb 12.6 L (13.0-17.5) gm/dL Hct 37.0 L (39.0-53.0) % Neutrophils # 8.9 H (1.3-7.7) k/uL Sodium 136 L (137-145) mmol/L BUN 8 L (9-20) mg/dL Glucose 110 H (74-99) mg/dL Calcium 8.0 L (8.4-10.2) mg/dL Assessment and Plan Plan: 1. Postoperative day #2 status post low back surgery with hardware removal and decompression of spinal stenosis at L4/L5 level. Pain management per surgery. 2. Essential hypertension, blood pressure well controlled 3. Mixed hyperlipidemia 4. Chronic neuropathic pain/sciatica 5. Major depressive disorder Patient is medically cleared for discharge home. Continue same home medication.
[2016-05-04 19:24] LABS: Bilirubin, Delta 0.2 mg/dL (0.0-0.2); Total Bilirubin 1.7 mg/dL (0.2-1.3); Total Protein 6.8 g/dL (6.3-8.2)
--- NOTE | 2016-05-04 20:02 | XR ---
EXAMINATION TYPE: XR abdomen 2V DATE OF EXAM: 05/04/2016 6:49 PM COMPARISON: NONE HISTORY: Lower abdominal surgery 2 days ago with severe lower abdominal pain for a day TECHNIQUE: 1 upright and 2 supine radiographs FINDINGS: There is gaseous distention throughout the small bowel and, most prominently involving the large bowel. The pattern suggests nonobstructive ileus. No pneumatosis. No pneumoperitoneum. IMPRESSION: PROMINENT BOWEL GAS PATTERN, LIKELY NONOBSTRUCTIVE ILEUS.
[2016-05-04] MEDS: ATORVASTATIN 20 MG TAB PO SCH (20:12)
[2016-05-04] MEDS: QUEtiapine 100 MG TAB PO SCH (20:12)
[2016-05-04] MEDS: PRAZOSIN 1 MG CAP PO SCH (20:12)
[2016-05-04] MEDS ORDERED: SENNOSIDES-DOCUSATE SODIUM 1 EACH TAB PO SCH (21:00)
[2016-05-04] MEDS ORDERED: HYDROmorphone 1 MG/ML 1 ML SYRINGE IVP PRN (22:32)
[2016-05-05] MEDS: HYDROmorphone 1 MG/ML 1 ML SYRINGE IVP PRN ×6 (01:17→21:07)
[2016-05-05] MEDS: SODIUM CHLORIDE 0.9% 1,000 ML IV SCH ×3 (05:03→17:37)
--- NOTE | 2016-05-05 08:00 | XR ---
EXAMINATION TYPE: XR abdomen 2V DATE OF EXAM: 05/05/2016 7:21 AM COMPARISON: 05/04/2016 HISTORY: Pain TECHNIQUE: One view abdominal series FINDINGS: The osseous structures are intact. The bowel gas pattern is nonspecific. Persistent dilated bowel lo ops are seen in the mid abdomen. Retained stool seen throughout the colon. Previous surgery involving the vertebral column. IMPRESSION: 1. Nonspecific abdomen. There are fewer distended bowel loops and air-fluid levels. Ileus or enterit is remains in the differential.
--- NOTE | 2016-05-05 08:30 | P.PN ---
Subjective Principal diagnosis: Status post posterior lateral decompression and fusion of L4 to L5 with removal of deep hardware L5 to S1 and iliac crest bone graft This is a 45 year-old male post posterior lateral decompression and fusion with transforaminal lumbar interbody fusion L4 to L5 with removal of deep hardware L5 to S1 with iliac crest bone graft.. This is post-op day 3. The patient was evaluated in a recliner chair at the bedside today. He is experiencing nausea and severe abdominal pain this morning. He states that he has not vomited since being in the hospital but has not ate much postoperatively. The patient denies shortness of breath and chest pain this morning. He states his back pain is controlled but his abdominal pain is much worse today. He had milk of magnesia yesterday without results. The patient has been ambulating in the hallway. He states that the numbness in his left foot has improved since surgery. Objective - Vital Signs Vital signs: Vital Signs Temp 99.6 F 05/05/16 01:05 Pulse 114 H 05/05/16 01:05 Resp 16 05/05/16 01:05 BP 132/87 05/05/16 01:05 Pulse Ox 94 L 05/05/16 01:05 Intake & Output 05/04/16 05/05/16 05/05/16 18:59 06:59 18:59 Intake Total 375 1000 Balance 375 1000 Intake: Intake, IV Titration 375 1000 Amount Sodium Chloride 0.9% 1, 1000 000 ml @ 100 mls/hr IV . Q10H [facility] Rx#:[id number] Sodium Chloride 0.9% 1, 375 000 ml @ 75 mls/hr IV . [id number] [facility] Rx#:[id number] Other: Voiding Method Toilet # Voids 2 - Exam The patient is alert and oriented 3. He is in no acute distress. Vital signs are stable. Abdomen is tender to the palpation in all 4 quadrants. Dorsiflexion, plantarflexion, extensor hallucis longus positive sustaining bilaterally. Calves are soft and nontender. Dressing was changed to the lower back with minimal drainage and Steri-Strips intact. Incision is without signs or symptoms of infection. Circulatory and neurological status is intact. - Labs CBC & Chem 7: 05/05/16 07:48 05/05/16 07:48 Labs: Abnormal Lab Results - Last 24 Hours (Table) 05/04/16 Range/Units 18:50 Total Bilirubin 1.7 H (0.2-1.3) mg/dL Unconjugated Bilirubin 1.5 H (0.0-1.1) mg/dL Lipase 22 L (23-300) U/L Assessment and Plan (1) Lumbar spinal stenosis Status: Acute (2) Lumbar degenerative disc disease Status: Acute (3) Status post lumbar spinal fusion Status: Acute Plan: The clinical and x-ray findings were discussed with the patient. We will await medical management input on abdominal x-rays. Possible general surgery consult is anticipated for unobstructive ileus. Discharge home today is on hold until abdominal pain is resolved. Orthopedically the patient is stable for discharge once ileus is resolved. We will continue to follow patient closely and make further recommendations as needed.
[2016-05-05 08:32] LABS: Basophils # (A) 0.1 k/uL (0-0.2); Basophils % (A) 1 %; CH 30.1; Eosinophils % (A) 0 %; HCT 39.1 % (39.0-53.0); HDW 2.93; HGB 13.5 gm/dL (13.0-17.5); Luc # (Auto) 0.15; Luc % (Auto) 1; Lymphocytes # (A) 1.3 k/uL (1.0-4.8); Lymphocytes % (A) 12 %; MCH 29.9 pg (25.0-35.0); MCHC 34.5 g/dL (31.0-37.0); MCV 86.5 fL (80.0-100.0); Mean Platelet Volume 7.5; Monocytes # (A) 0.6 k/uL (0-1.0); Monocytes % (A) 6 %; Neutrophils # (A) 8.4 k/uL (1.3-7.7); Neutrophils % (A) 80 %; RBC 4.52 m/uL (4.30-5.90); RDW 12.5 % (11.5-15.5); WBC 10.6 k/uL (3.8-10.6); WBC (Perox) 11.07
[2016-05-05 08:45] LABS: Anion Gap 10 mmol/L; Blood Urea Nitrogen 6 mg/dL (9-20); Calcium 8.4 mg/dL (8.4-10.2); Carbon Dioxide 26 mmol/L (22-30); Chloride 101 mmol/L (98-107); Glucose 112 mg/dL (74-99); Non-African American GFR(MDRD) >60 (>60 ml/min/1.73 sqM); Sodium 137 mmol/L (137-145)
[2016-05-05] MEDS: DIAZEPAM 5 MG TAB PO PRN (10:13)
[2016-05-05] MEDS: SERTRALINE 100 MG TAB PO SCH ×2 (10:18→23:03)
[2016-05-05] MEDS: LISINOPRIL 10 MG TAB PO SCH (10:18)
[2016-05-05] MEDS ORDERED: RX INFO: IV CONTRAST WAS GIVEN 1 EACH MISC MISCELLANE PRN (12:47)
[2016-05-05] MEDS: IOHEXOL 350 MG/ML 25 ML BOTTLE (ORAL USE) PO PRN ×2 (13:48→14:36)
--- NOTE | 2016-05-05 15:34 | CT ---
EXAMINATION TYPE: CT abdomen pelvis w con DATE OF EXAM: 05/05/2016 3:25 PM COMPARISON: NONE HISTORY: Generalized pain CT DLP: 1345 mGycm Automated exposure control for dose reduction was used. CONTRAST: CT scan of the abdomen pelvis is performed with IV Contrast, patient injected with 100 mL of Omnipaqu e 300. FINDINGS- LUNG BASES-bilateral subsegmental infiltrate noted. LIVER/GB- No gross abnormality is appreciated. PANCREAS- No gross abnormality is seen. SPLEEN- No gross abnormality is seen. ADRENALS- No gross abnormality is seen. KIDNEYS/BLADDER- no hydronephrosis nephrolithiasis or renal mass. BOWEL- no bowel dilatation. Normal appendix. LYMPH NODES- No greater than 1cm abdominal or pelvic lymph nodes areappreciated. OSSEOUS STRUCTURES-previous surgery involving the vertebral column noted. This obscures portions of t he pelvis. OTHER- retroaortic left renal vein noted. Aorta of normal caliber. Small amount of free fluid seen i n the pelvis. IMPRESSION- 1. Small amount of free fluid in the pelvis with no other evidence of acute process. 2. Postsurgical change involving the vertebral column 3. Colonic distention may been the basis of a mild ileus correlate clinically. No active inflammatory changes. 4. Subsegmental changes involving the lung bases. Atelectasis favored over pneumonia. 5. No definite gallstones. If there is concern for cholecystitis or gallbladder disease recommend ult rasound.
--- NOTE | 2016-05-05 15:36 | P.PN ---
Subjective Patient is complaining of abdominal pain 10 out of 10 in severity. He was found to have evidence of ileus on x-ray last night and he is currently nothing by mouth. He was seen and evaluated by surgery. Objective - Vital Signs Vital signs: Vital Signs Temp 101.6 F H 05/05/16 15:00 Pulse 110 H 05/05/16 15:00 Resp 17 05/05/16 15:00 BP 150/69 05/05/16 15:00 Pulse Ox 96 05/05/16 15:00 Intake & Output 05/04/16 05/05/16 05/05/16 18:59 06:59 18:59 Intake Total 375 1000 Output Total 600 Balance 375 1000 -600 Weight 99.79 kg Intake: Intake, IV Titration 375 1000 Amount Sodium Chloride 0.9% 1, 1000 000 ml @ 100 mls/hr IV . Q10H [facility] Rx#:[id number] Sodium Chloride 0.9% 1, 375 000 ml @ 75 mls/hr IV . [id number] [facility] Rx#:[id number] Output: Urine 600 Other: Voiding Method Toilet Toilet # Voids 2 2 - Exam General: The patient is awake and alert, in no distress Eye: there is normal conjunctiva bilaterally. Neck: The neck is supple, there is no JVD. Cardiovascular: Normal S1-S2, no S3-S4, no murmurs. Respiratory: Lungs clear to auscultation bilaterally Gastrointestinal: Abdomen is soft, with moderate to severe tenderness to palpation all over the abdomen Musculoskeletal: There is no pedal edema. Neurological:. Speech is normal. Skin: Skin is warm and dry - Labs CBC & Chem 7: 05/05/16 07:48 05/05/16 07:48 Labs: Abnormal Lab Results - Last 24 Hours (Table) 05/04/16 05/05/16 05/05/16 Range/Units 18:50 07:48 07:48 Neutrophils # 8.4 H (1.3-7.7) k/uL BUN 6 L (9-20) mg/dL Glucose 112 H (74-99) mg/dL Total Bilirubin 1.7 H (0.2-1.3) mg/dL Unconjugated Bilirubin 1.5 H (0.0-1.1) mg/dL Lipase 22 L (23-300) U/L Assessment and Plan Plan: 1. Postoperative day #3 status post low back surgery with hardware removal and decompression of spinal stenosis at L4/L5 level. Pain management per surgery. 2. Mild ileus: Seen and evaluated by surgery. Awaiting computed tomography scan of the abdomen. Currently nothing by mouth. Continue IV fluid hydration. Pain control 3. Essential hypertension, blood pressure well controlled 4. Mixed hyperlipidemia 5. Chronic neuropathic pain/sciatica 6. Major depressive disorder
[2016-05-05] MEDS ORDERED: SODIUM CHLORIDE 0.9% 500 ML IV ONE (16:50)
--- NOTE | 2016-05-05 17:01 | P.GSCN ---
History of Present Illness Consult date: 05/05/16 Reason for Consult: Abdominal pain Requesting physician: Suzanne Hernandez History of present illness: Patient is a 46-year-old male with medical history significant for appendectomy. Patient is status post low back surgery with hardware removal and decompression of spinal stenosis at L4/L5 level, postop day #3. Surgical consult has been requested for abdominal pain. Upon examination, patient complains of abdominal pain across his lower abdomen described as cramping. Patient reports that his last bowel movement was Monday night before surgery. Patient denies nausea or vomiting. Patient denies flatus. Apparently patient was given milk of magnesia with no relief yesterday. Abdominal x-ray from today with evidence of fever distended bowel loops and air-fluid levels than yesterday's abdominal x-ray. CT of abdomen and pelvis with evidence of colonic distention correlate for mild ileus with no active inflammatory changes. No definite gallstones. T-max the last 24 hours 101.6 at 3 PM this afternoon. Heart rate 110. No evidence of leukocytosis. Past Medical History Past Medical History: Hypertension, Osteoarthritis (OA), Sleep Apnea/CPAP/BIPAP Additional Past Medical History / Comment(s): migraines, wears a back brace History of Any Multi-Drug Resistant Organisms: None Reported Past Surgical History: Appendectomy, Back Surgery, Orthopedic Surgery Additional Past Surgical History / Comment(s): lumbar fusion, cervical fusion,4 surgeries left shoulder-2 arthroscopy, 3 surgeries rt shoulder-1 arthroscopy, Past Anesthesia/Blood Transfusion Reactions: No Reported Reaction Additional Past Anesthesia/Blood Transfusion Reaction / Comm: no previous problems with intubation/neck movement for general anesthesia Past Psychological History: PTSD Smoking Status: Never smoker Past Alcohol Use History: Rare Past Drug Use History: None Reported - Past Family History Father Family Medical History: Cancer Medications and Allergies Home Medications Medication Instructions Recorded Confirmed Type Lisinopril [Zestril] 10 mg PO DAILY 08/09/13 05/02/16 History Sertraline [Zoloft] 100 mg PO BID 09/10/13 05/02/16 History Gabapentin [Neurontin] 200 mg PO W/SUPPER 04/26/16 05/02/16 History Naproxen 500 mg PO DAILY 04/26/16 05/02/16 History Prazosin HCl 4 mg PO HS 04/26/16 05/02/16 History oxyCODONE HCL/ACETAMINOPHEN 2 tab PO BID 04/26/16 05/02/16 History [Percocet 5-325 mg] Atorvastatin Calcium [Lipitor] 20 mg PO HS 05/02/16 05/02/16 History QUEtiapine FUMARATE [SEROquel] 300 mg PO HS 05/02/16 05/02/16 History Allergies Allergy/AdvReac Type Severity Reaction Status Date / Time No Known Allergies Allergy Verified 04/26/16 10:17 Surgical - Exam Vital Signs Temp Pulse Resp BP Pulse Ox 97.7 F 70 16 125/72 100 05/02/16 11:32 05/02/16 11:32 05/02/16 11:32 05/02/16 11:32 05/02/16 11:32 GENERAL: Pt awake and alert, lying in bed, well-nourished, in no acute distress. HEAD: Atraumatic, normocephalic. EYES: Pupils equal and round. Sclera anicteric, conjunctiva are normal. ENT: Moist mucous membranes. LUNGS: Breath sounds clear to auscultation bilaterally. No wheezes, rales, or rhonchi. HEART: Heart S1, S2, no S3 or S4. No murmurs, rubs or gallops. Tachycardia. ABDOMEN: Soft, moderate tenderness across lower abdomen, nondistended, hypoactive bowel sounds. No guarding, no rebound. No masses or organomegaly appreciated. EXTREMITIES: Palpable peripheral pulses. No edema. No calf tenderness. NEUROLOGICAL: Pt oriented x 3. No focal deficits. Strength and sensation grossly intact. PSYCH: Normal mood, normal affect. Results - Labs 05/05/16 07:48 05/05/16 07:48 Abnormal Lab Results - Last 24 Hours (Table) 05/04/16 05/05/16 05/05/16 Range/Units 18:50 07:48 07:48 Neutrophils # 8.4 H (1.3-7.7) k/uL BUN 6 L (9-20) mg/dL Glucose 112 H (74-99) mg/dL Total Bilirubin 1.7 H (0.2-1.3) mg/dL Unconjugated Bilirubin 1.5 H (0.0-1.1) mg/dL Lipase 22 L (23-300) U/L Diabetes panel 05/04/16 05/05/16 Range/Units 18:50 07:48 Sodium 137 (137-145) mmol/L Potassium 4.0 (3.5-5.1) mmol/L Chloride 101 (98-107) mmol/L Carbon Dioxide 26 (22-30) mmol/L BUN 6 L (9-20) mg/dL Creatinine 1.03 (0.66-1.25) mg/dL Glucose 112 H (74-99) mg/dL Calcium 8.4 (8.4-10.2) mg/dL AST 27 (17-59) U/L ALT 37 (21-72) U/L Alkaline Phosphatase 84 (38-126) U/L Total Protein 6.8 (6.3-8.2) g/dL Albumin 3.8 (3.5-5.0) g/dL Calcium panel 05/04/16 05/05/16 Range/Units 18:50 07:48 Calcium 8.4 (8.4-10.2) mg/dL Albumin 3.8 (3.5-5.0) g/dL Pituitary panel 05/05/16 Range/Units 07:48 Sodium 137 (137-145) mmol/L Potassium 4.0 (3.5-5.1) mmol/L Chloride 101 (98-107) mmol/L Carbon Dioxide 26 (22-30) mmol/L BUN 6 L (9-20) mg/dL Creatinine 1.03 (0.66-1.25) mg/dL Glucose 112 H (74-99) mg/dL Calcium 8.4 (8.4-10.2) mg/dL Adrenal panel 05/04/16 05/05/16 Range/Units 18:50 07:48 Sodium 137 (137-145) mmol/L Potassium 4.0 (3.5-5.1) mmol/L Chloride 101 (98-107) mmol/L Carbon Dioxide 26 (22-30) mmol/L BUN 6 L (9-20) mg/dL Creatinine 1.03 (0.66-1.25) mg/dL Glucose 112 H (74-99) mg/dL Calcium 8.4 (8.4-10.2) mg/dL Total Bilirubin 1.7 H (0.2-1.3) mg/dL AST 27 (17-59) U/L ALT 37 (21-72) U/L Alkaline Phosphatase 84 (38-126) U/L Total Protein 6.8 (6.3-8.2) g/dL Albumin 3.8 (3.5-5.0) g/dL - Imaging CT scan - pelvis: report reviewed US - abdomen: report reviewed Assessment and Plan Plan: Impression: 1. Abdominal pain suspect secondary to nonobstructive ileus. 2. Sepsis, etiology unclear. 3. Atelectasis. Plan: 1. Continue nothing by mouth status. Patient has been started on Flagyl and Levaquin for empiric prophylactic coverage and lactic acid has been ordered along with blood cultures. Will await results of chest x-ray and urinalysis. Patient is currently receiving a fluid bolus of normal saline. We'll continue to follow with surgery and medical team. The above impression and plan have been discussed and directed by Dr. Acosta. Kayla CHRIS acting as scribe for Dr. Acosta.
[2016-05-05] MEDS: GABAPENTIN 100 MG CAP PO SCH (17:35)
[2016-05-05 17:40] LABS: Appearance,Urine Clear (Clear); Bilirubin,Urine Negative (Negative); Glucose,Urine (UA) Negative (Negative); Ketones,Urine 2+ (Negative); Leukocyte Esterase,Urine Negative (Negative); Nitrite,Urine Negative (Negative); Protein,Urine Negative (Negative); Specific Gravity,Urine 1.026 (1.001-1.035); UA Billing (MACRO vs. MICRO) CHEM; Urobilinogen,Urine <2.0 mg/dL (<2.0)
--- NOTE | 2016-05-05 17:40 | XR ---
EXAMINATION TYPE: XR chest 2V DATE OF EXAM: 05/05/2016 5:12 PM COMPARISON: 04/26/2016 HISTORY: Shortness of breath TECHNIQUE: Frontal and lateral views of the chest are obtained. FINDINGS: Patchy density at the lung bases which may reflect developing infiltrate. Correlate clinic ally and progress studies are recommended. The cardiac silhouette size is within normal limits. The osseous structures are intact. IMPRESSION: Patchy density at the lung bases which may reflect developing infiltrate. Correlate clin ically and progress studies are recommended.
[2016-05-05] MEDS ORDERED: ACETAMINOPHEN IV (For NPO) 1,000 MG in EMPTY BAG 1 BAG IVPB PRN (18:47)
[2016-05-05] MEDS: LEVOFLOXACIN 500MG-D5W PMX 500 MG in DEXTROSE/WATER 1 100ML.BAG IVPB SCH (21:33)
[2016-05-05] MEDS: PRAZOSIN 1 MG CAP PO SCH (21:39)
[2016-05-05] MEDS: ATORVASTATIN 20 MG TAB PO SCH (21:39)
[2016-05-05] MEDS: QUEtiapine 100 MG TAB PO SCH (21:39)
[2016-05-06] MEDS: metroNIDAZOLE-NS PMX 500 MG in SALINE 1 100ML.BAG IVPB SCH ×4 (02:08→23:14)
[2016-05-06 02:11] VITALS: RESP 16
[2016-05-06] MEDS: SODIUM CHLORIDE 0.9% 1,000 ML IV SCH ×3 (06:02→23:14)
[2016-05-06 07:17] LABS: Anion Gap 14 mmol/L; Blood Urea Nitrogen 8 mg/dL (9-20); Calcium 8.3 mg/dL (8.4-10.2); Carbon Dioxide 20 mmol/L (22-30); Chloride 106 mmol/L (98-107); Glucose 103 mg/dL (74-99); Non-African American GFR(MDRD) >60 (>60 ml/min/1.73 sqM); Potassium 4.1 mmol/L (3.5-5.1); Sodium 140 mmol/L (137-145)
[2016-05-06] MEDS: LISINOPRIL 10 MG TAB PO SCH (07:31)
[2016-05-06] MEDS: SERTRALINE 100 MG TAB PO SCH ×3 (07:31→20:17)
--- NOTE | 2016-05-06 08:35 | P.PN ---
Progress Note - Text Orthopedic Spine Patient is a very pleasant 45-year-old male who is seen and examined at the bedside following posterior lateral decompression and fusion with transforaminal lumbar interbody fusion L4-5 with removal of deep hardware L5-S1 and iliac crest bone graft performed 05/02/2016. Patient states they are doing well postsurgically in regards to his lumbar spine and lower extremities. He is not currently experiencing any significant low back pain or lower extremity radiculopathy bilaterally. In terms of his lumbar spine and legs, he feels he is ready for discharge home. However, he has continued to have difficulty with a bowel movement and is currently being treated for an ileus. He was able to have some small gas yesterday and today and had a very small bowel movement this morning. He continues to have some abdominal pain. Yesterday his temperature increased 101.6 but has reduced and 99 this morning. He is being followed by medicine and general surgery in regards to his ileus. Abdominal CT and abdominal x-ray were obtained.. He is currently nothing by mouth status. Prior to his ileus diagnosis, he was given Senokot and milk of magnesia which did not help facilitate a bowel movement. Patient has been started on Flagyl and Levaquin for prophylactic coverage as well as lactic acid and blood cultures obtained. Urinalysis was obtained and was negative for urinary tract infection. Currently does not complain of nausea, vomiting, fever, or chills. Patient states pain has been adequately controlled. Patient has been voiding freely without difficulty. Physical Exam Lumbar Fusion: Status post surgical day number 4 Patient is awake, alert, and oriented 3 Vital signs stable Good chest excursion with deep inspiration and expiration Abdomen tender to palpation Dorsiflexion, plantarflexion, and extensor hallucis longus positive sustained bilaterally Adequate range of motion bilateral lower extremities throughout range of motion No signs or symptoms of DVT; no calf pain; calves soft to palpation Dressing is clean, dry, and intact; no erythema, purulence, or signs of infection Neurovascularly intact bilaterally lower extremities Pertinent studies: CT abdomen and pelvis with contrast: Small amount of free fluid in the pelvis with no other evidence of acute process some: Postsurgical change involving the vertebral column; colonic distention a been the basis of mild ileus with no active inflammatory changes; submental changes involving the lung bases Abdominal x-ray: Nonspecific abdomen; Distended bowel loops and air-fluid levels in which ileus or antritis remains the differential; retained stool seen throughout the colon Pertinent studies taken on 05/05/2016: WBC 10.6 RBC 4.52 Hemoglobin 13.5 Hematocrit 39.1 Neutrophils 8.4 Assessment: Posterior lateral decompression and fusion L4-5 Transforaminal lumbar interbody fusion L4-5 Removal of deep hardware L5-S1 L4-5 spinal canal stenosis and adjacent level degenerative disc disease Low back pain with left lower extremity radiculopathy History of prior lumbar fusion L5-S1 Plan: 1. Ambulate as tolerated; work with Physical Therapy to increase mobilization 2. Continue pain control with IV and oral medications as needed 3. Telfa and Tegaderm to remain intact 4. General surgery and Medical management can continue to manage patient for patient's other medical issues including ileus 5. We will continue to follow the patient closely; we will plan for discharge after resolution of the patient's ileus 6. From an orthopedic spine standpoint, patient is clear for discharge once cleared by general surgery and medicine in regards to his ileus 7. Patient can follow-up with Kenrick Alonso PA-C or Dr. Tod Churchill at [facility] in 2-3 weeks following discharge
--- NOTE | 2016-05-06 14:33 | P.PN ---
Subjective Principal diagnosis: Ileus Patient is a 46-year-old male with medical history significant for appendectomy. Patient is status post low back surgery with hardware removal and decompression of spinal stenosis at L4/L5 level, postop day #4. Surgical consult has been requested for abdominal pain with CT of abdomen and pelvis suggesting nonobstructive ileus. Upon examination, patient is feeling better. Reporting flatus with small bowel movement this morning. Patient denies nausea or vomiting. Objective - Vital Signs Vital signs: Vital Signs Temp 99 F 05/06/16 07:00 Pulse 101 H 05/06/16 08:00 Resp 16 05/06/16 08:00 BP 103/64 05/06/16 07:00 Pulse Ox 97 05/06/16 07:00 Intake & Output 05/05/16 05/06/16 05/06/16 18:59 06:59 18:59 Intake Total 1600 Output Total 1200 Balance -1200 1600 Weight 99.79 kg Intake: IV 1100 ACETAMINOPHEN IV (For NPO 100 ) 1,000 mg In Empty Bag 1 bag @ 400 mls/hr IVPB Q6HR PRN Rx#:[id number] Sodium Chloride 0.9% 1, 900 000 ml @ 100 mls/hr IV . Q10H SOLANGE Rx#:[id number] metroNIDAZOLE-NS PMX 500 100 mg In Saline 1 100ml.bag @ 100 mls/hr IVPB Q8HR SOLANGE Rx#:[id number] Intake, IV Titration 500 Amount Levofloxacin 500Mg-D5w 100 Pmx 500 mg In Dextrose/ Water 1 100ml.bag @ 100 mls/hr IVPB Q24H SOLANGE Rx#: [id number] Sodium Chloride 0.9% 1, 400 000 ml @ 100 mls/hr IV . Q10H SOLANGE Rx#:[id number] Output: Urine 1200 Other: Voiding Method Toilet Toilet # Voids 2 4 - Exam GENERAL: Pt awake and alert, lying in bed, well-nourished, in no acute distress. LUNGS: Breath sounds clear to auscultation bilaterally. No wheezes, rales, or rhonchi. HEART: Heart S1, S2, no S3 or S4. No murmurs, rubs or gallops. Tachycardia. ABDOMEN: Soft, nontender, nondistended, active bowel sounds. No guarding, no rebound. No masses or organomegaly appreciated. EXTREMITIES: Palpable peripheral pulses. No edema. No calf tenderness. NEUROLOGICAL: Pt oriented x 3. No focal deficits. Strength and sensation grossly intact. PSYCH: Normal mood, normal affect. - Labs CBC & Chem 7: 05/05/16 07:48 05/06/16 06:31 Labs: Abnormal Lab Results - Last 24 Hours (Table) 05/05/16 05/06/16 Range/Units 17:20 06:31 Carbon Dioxide 20 L (22-30) mmol/L BUN 8 L (9-20) mg/dL Glucose 103 H (74-99) mg/dL Calcium 8.3 L (8.4-10.2) mg/dL Urine Ketones 2+ H (Negative) Microbiology - Last 24 Hours (Table) 05/05/16 17:20 Urine Culture - Preliminary Urine,Voided Assessment and Plan Plan: Impression: 1. Abdominal pain suspect secondary to nonobstructive ileus, improving. Plan: 1. Start patient on a clear liquid diet and advance as tolerated. Continue supportive treatment and pain management. Increase activity. Patient is not a surgical candidate at this time. The above impression and plan have been discussed and directed by Dr. Acosta. Kayla CHRIS acting as scribe for Dr. Acosta.
--- NOTE | 2016-05-06 14:54 | P.PN ---
Subjective Patient is resting in bed today. He developed sepsis with high grade fever last night. He was started on broad-spectrum antibiotic. Blood culture pending. Objective - Vital Signs Vital signs: Vital Signs Temp 99 F 05/06/16 07:00 Pulse 101 H 05/06/16 08:00 Resp 16 05/06/16 08:00 BP 103/64 05/06/16 07:00 Pulse Ox 97 05/06/16 07:00 Intake & Output 05/05/16 05/06/16 05/06/16 18:59 06:59 18:59 Intake Total 1600 Output Total 1200 Balance -1200 1600 Weight 99.79 kg Intake: IV 1100 ACETAMINOPHEN IV (For NPO 100 ) 1,000 mg In Empty Bag 1 bag @ 400 mls/hr IVPB Q6HR PRN Rx#:[id number] Sodium Chloride 0.9% 1, 900 000 ml @ 100 mls/hr IV . Q10H SOLANGE Rx#:[id number] metroNIDAZOLE-NS PMX 500 100 mg In Saline 1 100ml.bag @ 100 mls/hr IVPB Q8HR SOLANGE Rx#:[id number] Intake, IV Titration 500 Amount Levofloxacin 500Mg-D5w 100 Pmx 500 mg In Dextrose/ Water 1 100ml.bag @ 100 mls/hr IVPB Q24H SOLANGE Rx#: [id number] Sodium Chloride 0.9% 1, 400 000 ml @ 100 mls/hr IV . Q10H SOLANGE Rx#:[id number] Output: Urine 1200 Other: Voiding Method Toilet Toilet # Voids 2 4 - Exam General: The patient is awake and alert, in no distress Eye: there is normal conjunctiva bilaterally. Neck: The neck is supple, there is no JVD. Cardiovascular: Normal S1-S2, no S3-S4, no murmurs. Respiratory: Lungs clear to auscultation bilaterally Gastrointestinal: Abdomen is soft, with moderate to severe tenderness to palpation all over the abdomen Musculoskeletal: There is no pedal edema. Neurological:. Speech is normal. Skin: Skin is warm and dry - Labs CBC & Chem 7: 05/05/16 07:48 05/06/16 06:31 Labs: Abnormal Lab Results - Last 24 Hours (Table) 05/05/16 05/06/16 Range/Units 17:20 06:31 Carbon Dioxide 20 L (22-30) mmol/L BUN 8 L (9-20) mg/dL Glucose 103 H (74-99) mg/dL Calcium 8.3 L (8.4-10.2) mg/dL Urine Ketones 2+ H (Negative) Microbiology - Last 24 Hours (Table) 05/05/16 17:20 Urine Culture - Preliminary Urine,Voided Assessment and Plan Plan: 1. Sepsis with SIRS: An suspected intra-abdominal source. Currently on broad- spectrum antibiotic. Computed tomography scan of the abdomen showed no significant findings. Urinalysis was unremarkable. Chest x-ray showed a basilar infiltrate possibly atelectasis as patient is not having any productive cough. Awaiting blood cultures to finalize. Continue current regimen with antibiotic for now. 2. Postoperative day #4 status post low back surgery with hardware removal and decompression of spinal stenosis at L4/L5 level. Pain management per surgery. 2. Mild ileus: Seen and evaluated by surgery. Currently on liquid diet. Continue IV fluid hydration. Pain control 3. Essential hypertension, blood pressure well controlled 4. Mixed hyperlipidemia 5. Chronic neuropathic pain/sciatica 6. Major depressive disorder
[2016-05-06] MEDS: oxyCODONE-APAP 7.5-325MG 1 EACH TAB PO PRN (15:00)
[2016-05-06] MEDS: METOCLOPRAMIDE 5 MG/ML 2 ML VIAL IVP SCH ×3 (15:01→23:14)
[2016-05-06] MEDS: GABAPENTIN 100 MG CAP PO SCH (17:15)
[2016-05-06] MEDS: LEVOFLOXACIN 500MG-D5W PMX 500 MG in DEXTROSE/WATER 1 100ML.BAG IVPB SCH (18:11)
[2016-05-06] MEDS: ATORVASTATIN 20 MG TAB PO SCH (20:16)
[2016-05-06] MEDS: QUEtiapine 100 MG TAB PO SCH (20:17)
[2016-05-06] MEDS: PRAZOSIN 1 MG CAP PO SCH (20:17)
[2016-05-06] MEDS: HYDROmorphone 1 MG/ML 1 ML SYRINGE IVP PRN (20:22)
[2016-05-07] MEDS: HYDROmorphone 1 MG/ML 1 ML SYRINGE IVP PRN (02:45)
[2016-05-07] MEDS: METOCLOPRAMIDE 5 MG/ML 2 ML VIAL IVP SCH ×2 (05:20→11:47)
[2016-05-07 07:52] LABS: Anion Gap 9 mmol/L; Blood Urea Nitrogen 6 mg/dL (9-20); Calcium 8.2 mg/dL (8.4-10.2); Carbon Dioxide 27 mmol/L (22-30); Chloride 106 mmol/L (98-107); Glucose 112 mg/dL (74-99); Non-African American GFR(MDRD) >60 (>60 ml/min/1.73 sqM); Sodium 142 mmol/L (137-145)
[2016-05-07 07:54] VITALS: BP 130/92; PULSE 83; TEMP 97.9
[2016-05-07] MEDS: LISINOPRIL 10 MG TAB PO SCH (08:52)
[2016-05-07] MEDS: SODIUM CHLORIDE 0.9% 1,000 ML IV SCH (09:16)
[2016-05-07] MEDS: metroNIDAZOLE-NS PMX 500 MG in SALINE 1 100ML.BAG IVPB SCH (09:30)
[2016-05-07] MEDS: SERTRALINE 100 MG TAB PO SCH (09:31)
--- NOTE | 2016-05-07 10:14 | P.PN ---
Progress Note - Text This is a 45-year-old male who is admitted for lumbar decompression and fusion with transforaminal interbody fusion of L4 5. His discharge was held due to abdominal issues. Patient developed an ileus. He has had a few large bowel movements the past 12 hours. He is feeling much better today. He may be discharged to home today if cleared medically. Please see previous discharge summary and discharge plan.
--- NOTE | 2016-05-07 11:01 | P.PN ---
Progress Note - Text The patient feels better today. He states he has had bowel movements and flatus. On exam his vital signs are stable. His abdomen soft. The patient's ileus is resolving. His diet will be advanced as tolerated.
--- NOTE | 2016-05-07 14:27 | P.PN ---
Subjective Patient is doing well today. He is looking forward to be discharged home. Objective - Vital Signs Vital signs: Vital Signs Temp 97.9 F 05/07/16 07:00 Pulse 83 05/07/16 07:54 Resp 16 05/07/16 07:54 BP 130/92 05/07/16 07:00 Pulse Ox 94 L 05/07/16 09:20 Intake & Output 05/06/16 05/07/16 05/07/16 18:59 06:59 18:59 Intake Total 600 Output Total 600 Balance 0 Weight 99.79 kg 99.79 kg Intake: Oral 600 Output: Urine 600 Other: Voiding Method Toilet Toilet Toilet # Voids 4 - Exam General: The patient is awake and alert, in no distress Eye: there is normal conjunctiva bilaterally. Neck: The neck is supple, there is no JVD. Cardiovascular: Normal S1-S2, no S3-S4, no murmurs. Respiratory: Lungs clear to auscultation bilaterally Gastrointestinal: Abdomen is soft, nontender Musculoskeletal: There is no pedal edema. Neurological:. Speech is normal. Skin: Skin is warm and dry - Labs CBC & Chem 7: 05/05/16 07:48 05/07/16 07:14 Labs: Abnormal Lab Results - Last 24 Hours (Table) 05/07/16 Range/Units 07:14 BUN 6 L (9-20) mg/dL Glucose 112 H (74-99) mg/dL Calcium 8.2 L (8.4-10.2) mg/dL Microbiology - Last 24 Hours (Table) 05/05/16 17:20 Urine Culture - Final Urine,Voided 05/05/16 16:57 Blood Culture - Preliminary Blood No Growth after 24 hours Assessment and Plan Plan: 1. Sepsis with SIRS: suspected intra-abdominal source. Computed tomography scan of the abdomen showed no significant findings. Urinalysis was unremarkable. Chest x-ray showed a basilar infiltrate possibly atelectasis as patient is not having any productive cough. Blood culture negative to date. 2. Postoperative day #5 status post low back surgery with hardware removal and decompression of spinal stenosis at L4/L5 level. Pain management per surgery. 2. Mild ileus: Seen and evaluated by surgery. Currently on liquid diet. Continue IV fluid hydration. Pain control 3. Essential hypertension, blood pressure well controlled 4. Mixed hyperlipidemia 5. Chronic neuropathic pain/sciatica 6. Major depressive disorder Patient is medically cleared for discharge home. Continue 5 days course of Augmentin at home twice daily. Prescription sent to his pharmacy. Continue home medication otherwise.
== END 2016-05-07 15:07 | disposition home or self-care (01) | DRG 459 ==
LOC: 2ORMAIN 11:23 → 3SUR 17:39
PROVIDERS: ADMIT Orthopaedic Surgery Orthopaedic Surgery of the Spine; ATTEND Orthopaedic Surgery Orthopaedic Surgery of the Spine
PROC: 0SB20ZZ Excision of Lumbar Vertebral Disc, Open Approach (ICD-10-PCS; 2016-05-02)
PROC: 0SP304Z Removal of Internal Fixation Device from Lumbosacral Joint, Open Approach (ICD-10-PCS; 2016-05-02)
PROC: 0QB30ZZ Excision of Left Pelvic Bone, Open Approach (ICD-10-PCS; 2016-05-02)
PROC: 0SG00A1 (ICD-10-PCS; 2016-05-02)
PROC: 30233N0 Transfusion of Autologous Red Blood Cells into Peripheral Vein, Percutaneous Approach (ICD-10-PCS; 2016-05-02)
PROC: 4A11X4G Monitoring of Peripheral Nervous Electrical Activity, Intraoperative, External Approach (ICD-10-PCS; 2016-05-02)
PROC: 07DR3ZZ Extraction of Iliac Bone Marrow, Percutaneous Approach (ICD-10-PCS; 2016-05-02)
PROC: 0SG00AJ Fusion of Lumbar Vertebral Joint with Interbody Fusion Device, Posterior Approach, Anterior Column, Open Approach (ICD-10-PCS; principal; 2016-05-02 13:00)
DX: M48.06 Spinal stenosis, lumbar region (principal); A41.9 Sepsis, unspecified organism; K56.7 Ileus, unspecified; J98.11 Atelectasis; I10 Essential (primary) hypertension; M51.16 Intervertebral disc disorders with radiculopathy, lumbar region; E78.2 Mixed hyperlipidemia; M79.2 Neuralgia and neuritis, unspecified; R00.0 Tachycardia, unspecified; G47.33 Obstructive sleep apnea (adult) (pediatric); K59.00 Constipation, unspecified; H91.90 Unspecified hearing loss, unspecified ear; M19.90 Unspecified osteoarthritis, unspecified site; F32.9 Major depressive disorder, single episode, unspecified; G89.29 Other chronic pain; G43.909 Migraine, unspecified, not intractable, without status migrainosus; F43.10 Post-traumatic stress disorder, unspecified; Z90.49 Acquired absence of other specified parts of digestive tract; Z98.1 Arthrodesis status; Z79.1 Long term (current) use of non-steroidal anti-inflammatories (NSAID); Z79.891 Long term (current) use of opiate analgesic; Z79.899 Other long term (current) drug therapy; Z80.9 Family history of malignant neoplasm, unspecified
CPT/HCPCS: 71020; 72020; 72100; 74020; 74177; 80048; 80076; 81003; 82150; 83605; 83690; 85025; 86850; 86891; 86900; 86901; 87040; 87086; 94760

== ENCOUNTER 2016-05-25 00:18 | Emergency (ER) | payer OTHER ==
[2016-05-25 00:30] VITALS: RESP 16; TEMP 98.5
[2016-05-25 01:19] LABS: Appearance,Urine Clear (Clear); Bilirubin,Urine Negative (Negative); Glucose,Urine (UA) Negative (Negative); Ketones,Urine Negative (Negative); Leukocyte Esterase,Urine Negative (Negative); Nitrite,Urine Negative (Negative); PH, Urine 7.5 (5.0-8.0); Protein,Urine Negative (Negative); Specific Gravity,Urine 1.004 (1.001-1.035); UA Billing (MACRO vs. MICRO) CHEM; Urobilinogen,Urine <2.0 mg/dL (<2.0)
[2016-05-25 01:21] LABS: Basophils # (A) 0.1 k/uL (0-0.2); Basophils % (A) 1 %; CHCM 34.8; Eosinophils # (A) 0.1 k/uL (0-0.7); Eosinophils % (A) 1 %; HCT 39.3 % (39.0-53.0); HDW 3.05; HGB 13.3 gm/dL (13.0-17.5); Luc # (Auto) 0.13; Luc % (Auto) 1; Lymphocytes # (A) 1.4 k/uL (1.0-4.8); Lymphocytes % (A) 14 %; MCH 29.4 pg (25.0-35.0); MCHC 33.9 g/dL (31.0-37.0); MCV 86.6 fL (80.0-100.0); Monocytes # (A) 0.5 k/uL (0-1.0); Monocytes % (A) 6 %; Neutrophils # (A) 7.7 k/uL (1.3-7.7); Neutrophils % (A) 78 %; RBC 4.55 m/uL (4.30-5.90); RDW 12.4 % (11.5-15.5); WBC 9.9 k/uL (3.8-10.6); WBC (Perox) 10.58
--- NOTE | 2016-05-25 01:28 | XR ---
EXAM: XR Abdomen, 1 View. CLINICAL HISTORY: Reason: abdominal pain TECHNIQUE: Frontal upright views of the abdomen/pelvis. COMPARISON: 05/05/[address] FINDINGS: Intraperitoneal space: No free air is seen. Gastrointestinal tract: There is again a fair amount of colonic stool, particularly right-sided, albeit decreased since the prior exam. There are few air-fluid levels present involving nondilated small bowel loops in the upper and mid abdomen, nonspecific. Bones/joints: Bones stable including previous lower lumbar fusion. IMPRESSION: 1. Nonspecific bowel gas pattern with scattered air-fluid levels seen involving nondilated small bowel loops, perhaps on the basis of mild ileus. Very early or incomplete small bowel obstruction is technically not entirely excluded. The findings could be correlated and followed clinically to guide further imaging follow-up as clinically indicated. 2. Some interval improvement in colonic stool burden noted.
[2016-05-25 01:33] LABS: ALT 55 U/L (21-72); AST 22 U/L (17-59); Alkaline Phosphatase 136 U/L (38-126); Amylase 67 U/L (30-110); Anion Gap 9 mmol/L; Blood Urea Nitrogen 16 mg/dL (9-20); Carbon Dioxide 26 mmol/L (22-30); Chloride 106 mmol/L (98-107); Glucose 112 mg/dL (74-99); Non-African American GFR(MDRD) >60 (>60 ml/min/1.73 sqM); Sodium 141 mmol/L (137-145); Total Bilirubin 0.7 mg/dL (0.2-1.3); Total Protein 6.5 g/dL (6.3-8.2)
[2016-05-25] MEDS ORDERED: HYDROmorphone 1 MG/ML 1 ML SYRINGE IVP STA (01:59)
--- NOTE | 2016-05-25 02:22 | ED ---
Abdominal Pain HPI - General Chief Complaint: Back Pain/Injury Stated Complaint: back pain Time Seen by Provider: 05/25/16 00:27 Source: EMS Mode of arrival: EMS Limitations: no limitations - History of Present Illness Initial Comments: 45-year-old man who presents to be evaluated for some epigastric pain. It also was present in his back. He had episode of nausea and vomiting and patient was concerned this may be related to gallbladder. The description that he gave me was somewhat different than wasn't in the triage and nursing notes. When I saw the patient he was staying at the pain seemed to be more related to abdomen and then back. He did not have the impression this was related to the previous back surgery at all. MD Complaint: abdominal pain -: hour(s) Location: epigastric Radiation: none Migration to: no migration Severity: moderate Quality: aching Consistency: constant Improves With: nothing Worsens With: nothing Associated Symptoms: nausea, vomiting - Related Data Home Medications Medication Instructions Recorded Confirmed Lisinopril [Zestril] 10 mg PO DAILY 08/09/13 05/02/16 Sertraline [Zoloft] 100 mg PO BID 09/10/13 05/02/16 Gabapentin [Neurontin] 200 mg PO W/SUPPER 04/26/16 05/02/16 Naproxen 500 mg PO DAILY 04/26/16 05/02/16 Prazosin HCl 4 mg PO HS 04/26/16 05/02/16 oxyCODONE HCL/ACETAMINOPHEN 2 tab PO BID 04/26/16 05/02/16 [Percocet 5-325 mg] Atorvastatin Calcium [Lipitor] 20 mg PO HS 05/02/16 05/02/16 QUEtiapine FUMARATE [SEROquel] 300 mg PO HS 05/02/16 05/02/16 Previous Rx's Medication Instructions Recorded Atorvastatin [Lipitor] 20 mg PO HS tab 05/04/16 QUEtiapine [SEROquel] 300 mg PO HS tab 05/04/16 Amoxic-Pot Clav 875-125Mg 1 tab PO Q12HR #10 tablet 05/07/16 [Augmentin 875-125] Dicyclomine [Bentyl] 20 mg PO QID #15 tablet 05/25/16 Allergies Allergy/AdvReac Type Severity Reaction Status Date / Time No Known Allergies Allergy Verified 04/26/16 10:17 Review of Systems ROS Statement: Those systems with pertinent positive or pertinent negative responses have been documented in the HPI. ROS Other: All systems not noted in ROS Statement are negative. Constitutional: Denies: fever, chills, weakness Respiratory: Denies: cough, dyspnea Cardiovascular: Denies: chest pain Gastrointestinal: Reports: as per HPI, abdominal pain, nausea, vomiting. Denies : diarrhea Genitourinary: Denies: dysuria, frequency, hematuria Musculoskeletal: Denies: back pain Skin: Denies: rash Neurological: Denies: headache, weakness, numbness Past Medical History Past Medical History: Hypertension, Osteoarthritis (OA), Sleep Apnea/CPAP/BIPAP Additional Past Medical History / Comment(s): migraines, wears a back brace, high cholesterol History of Any Multi-Drug Resistant Organisms: None Reported Past Surgical History: Appendectomy, Back Surgery, Orthopedic Surgery Additional Past Surgical History / Comment(s): lumbar fusion, cervical fusion,4 surgeries left shoulder-2 arthroscopy, 3 surgeries rt shoulder-1 arthroscopy, Past Anesthesia/Blood Transfusion Reactions: No Reported Reaction Additional Past Anesthesia/Blood Transfusion Reaction / Comment(s): no previous problems with intubation/neck movement for general anesthesia Past Psychological History: PTSD Smoking Status: Never smoker Past Alcohol Use History: Rare Past Drug Use History: None Reported - Past Family History Father Family Medical History: Cancer General Exam General appearance: alert, in no apparent distress Head exam: Present: atraumatic, normocephalic, normal inspection Eye exam: Present: normal appearance. Absent: scleral icterus, conjunctival injection ENT exam: Present: normal exam, normal oropharynx Neck exam: Present: normal inspection, full ROM Respiratory exam: Present: normal lung sounds bilaterally. Absent: respiratory distress, wheezes, rales, rhonchi, stridor Cardiovascular Exam: Present: regular rate, normal rhythm, normal heart sounds. Absent: systolic murmur, diastolic murmur, rubs, gallop GI/Abdominal exam: Present: soft, tenderness (There is mild epigastric tenderness and no rebound or guarding.), normal bowel sounds, hernia (The patient does have a small defect at the umbilicus, however the hernia is reduced and there is no tenderness.). Absent: distended, guarding, rebound, rigid, mass, bruit, pulsatile mass Extremities exam: Present: normal inspection, normal capillary refill. Absent: pedal edema, calf tenderness Back exam: Present: normal inspection. Absent: CVA tenderness (R), CVA tenderness (L) Neurological exam: Present: alert Skin exam: Present: warm, dry, intact, normal color. Absent: rash Course Vital Signs 05/25/16 05/25/16 00:24 02:32 Temperature 98.5 F Pulse Rate 85 70 Respiratory 16 16 Rate Blood Pressure 125/55 114/57 O2 Sat by Pulse 97 100 Oximetry Medical Decision Making - Medical Decision Making The patient's symptoms have resolved. His exam at does not indicate any type of surgical condition. He does have some mild epigastric tenderness, and discussed further follow-up for this including ultrasound and possible HIDA scan for the gallbladder. This all is negative, the patient may require upper endoscopy. Discussed return parameters and appropriate follow-up. - Lab Data Result diagrams: 05/25/16 00:55 05/25/16 00:55 Lab Results 05/25/16 05/25/16 05/25/16 Range/Units 00:55 00:55 00:55 WBC 9.9 (3.8-10.6) k/uL RBC 4.55 (4.30-5.90) m/uL Hgb 13.3 (13.0-17.5) gm/dL Hct 39.3 (39.0-53.0) % MCV 86.6 (80.0-100.0) fL MCH 29.4 (25.0-35.0) pg MCHC 33.9 (31.0-37.0) g/dL RDW 12.4 (11.5-15.5) % Plt Count 369 (150-450) k/uL Neutrophils % 78 % Lymphocytes % 14 % Monocytes % 6 % Eosinophils % 1 % Basophils % 1 % Neutrophils # 7.7 (1.3-7.7) k/uL Lymphocytes # 1.4 (1.0-4.8) k/uL Monocytes # 0.5 (0-1.0) k/uL Eosinophils # 0.1 (0-0.7) k/uL Basophils # 0.1 (0-0.2) k/uL Sodium 141 (137-145) mmol/L Potassium 4.0 (3.5-5.1) mmol/L Chloride 106 (98-107) mmol/L Carbon Dioxide 26 (22-30) mmol/L Anion Gap 9 mmol/L BUN 16 (9-20) mg/dL Creatinine 1.00 (0.66-1.25) mg/dL Est GFR (MDRD) Af Amer >60 (>60 ml/min/1.73 sqM) Est GFR (MDRD) Non-Af >60 (>60 ml/min/1.73 sqM) Glucose 112 H (74-99) mg/dL Calcium 9.0 (8.4-10.2) mg/dL Total Bilirubin 0.7 (0.2-1.3) mg/dL AST 22 (17-59) U/L ALT 55 (21-72) U/L Alkaline Phosphatase 136 H (38-126) U/L Total Protein 6.5 (6.3-8.2) g/dL Albumin 3.8 (3.5-5.0) g/dL Amylase 67 (30-110) U/L Lipase 158 (23-300) U/L Urine Color Light Yellow Urine Appearance Clear (Clear) Urine pH 7.5 (5.0-8.0) Ur Specific [place] 1.004 (1.001-1.035) Urine Protein Negative (Negative) Urine Glucose (UA) Negative (Negative) Urine Ketones Negative (Negative) Urine Blood Negative (Negative) Urine Nitrite Negative (Negative) Urine Bilirubin Negative (Negative) Urine Urobilinogen <2.0 (<2.0) mg/dL Ur Leukocyte Esterase Negative (Negative) Disposition Clinical Impression: Abdominal pain Disposition: HOME SELF-CARE Condition: Good Instructions: Abdominal Pain (ED) Additional Instructions: As we discussed, follow-up to have the ultrasound performed and also possibly the HIDA scan. Should her symptoms recur or if there is worsening in anyway definitely return to the emergency room. Prescriptions: Dicyclomine [Bentyl] 20 mg PO QID #15 tablet Referrals: Angie Mora DO [Primary Care Provider] - 1-2 days Sara Hale MD [STAFF PHYSICIAN] - 1-2 days
[2016-05-25 02:34] VITALS: BP 114/57; PULSE 70
== END 2016-05-25 02:31 | disposition home or self-care (01) ==
LOC: EC 00:18
DX: R10.13 Epigastric pain (principal); I10 Essential (primary) hypertension; M19.90 Unspecified osteoarthritis, unspecified site; G47.30 Sleep apnea, unspecified; Z99.89 Dependence on other enabling machines and devices; E78.00 Pure hypercholesterolemia, unspecified; F43.10 Post-traumatic stress disorder, unspecified; Z98.1 Arthrodesis status; Z79.1 Long term (current) use of non-steroidal anti-inflammatories (NSAID); Z79.899 Other long term (current) drug therapy
CPT/HCPCS: 99283; 96374; 36415; 80053; 82150; 83690; 85025; 81003; 74000; J1170

== ENCOUNTER → 2016-09-14 | Outpatient (CLI) | payer OTHER ==
--- NOTE | 2016-09-14 22:31 | MR ---
EXAMINATION TYPE: MR cervical spine wo con DATE OF EXAM: 09/14/2016 COMPARISON: NONE HISTORY: 45-year-old male Cervical radiculopathy, pain TECHNIQUE: Multiplanar, multisequence images of the cervical spine were acquired. The technologist tj collazo note that the patient declined IV contrast. FINDINGS: No craniocervical junction abnormality, predental space widening, or prevertebral soft tissue swellin g. There is normal alignment of the cervical spine. Postsurgical changes of C5-C7 ACDF. No suspicious bone marrow replacement. From C2 through C4 levels, no spinal canal or neuroforaminal stenosis. At C4-C5, there is mild disc desiccation with mild disc bulging and facet/uncovertebral joint degener ative change. This does not contribute any significant spinal canal or foraminal stenosis. At C5-C6, there is uncovertebral joint and facet degenerative change that results in mild left neurof oraminal stenosis. At C6/C7, there is uncovertebral joint and facet degenerative change that results in moderate left an d [id number] right neuroforaminal stenosis. No spinal canal stenosis. At C7-T1, mild facet degenerative change without canal or foraminal stenosis. Normal course, caliber, and signal intensity of the cervical cord. No prevertebral or paravertebral soft tissue abnormality seen. IMPRESSION: 1. Uncomplicated appearance to the C5-C7 ACDF. There is facet and uncovertebral joint degenerative ch damaris at these fused levels. 2. Changes result in mild left neuroforaminal stenosis at C5-C6 and moderate left with mild to modera te right neuroforaminal stenosis at C6-C7. 3. Mild degenerative disc disease above the fusion at C4-C5. No focal disc herniation or canal compro mise.
== END | disposition home or self-care (01) ==
LOC: RADMRIMAIN 20:23
PROVIDERS: ATTEND Orthopaedic Surgery Orthopaedic Surgery of the Spine
DX: M99.71 Connective tissue and disc stenosis of intervertebral foramina of cervical region (principal); M50.121 Cervical disc disorder at C4-C5 level with radiculopathy; M47.22 Other spondylosis with radiculopathy, cervical region; Z98.1 Arthrodesis status
CPT/HCPCS: 72141